=== PATIENT | female | born 1960 | race American Indian/Alaskan Native ===

== ENCOUNTER 2021-05-14 14:22 | Emergency (ER) | payer MEDICARE ==
[2021-05-14 14:38] VITALS: BP 154/90
[2021-05-14] MEDS ORDERED: ASPIRIN 81 MG TAB CHEW PO ONE (14:40)
--- NOTE | 2021-05-14 14:56 | Emergency Department Report ---
ED Chest Pain HPI - General Chief Complaint: Chest Pain Stated Complaint: CHEST PAIN Time Seen by Provider: 05/14/21 14:34 Source: patient Mode of arrival: Stretcher Limitations: No Limitations - History of Present Illness Initial Comments: Patient is 60 years old female with history of hypertension and diabetes. Patient presented to the ER complaining of sudden onset of substernal chest pain with no radiation. Patient denies any shortness of breath, fever or chills. No nausea or vomiting. MD Complaint: chest pain -: hour(s) (2), This afternoon Onset: during rest Pain Location: substernal Severity scale (0 -10): 5 Quality: tightness, pressure Consistency: constant - Related Data Allergies Allergy/AdvReac Type Severity Reaction Status Date / Time No Known Allergies Allergy Verified 05/14/21 14:30 Heart Score - HEART Score History: Moderately suspicious EKG: Non-specific Age: 45-65 Risk factors: > 3 risk factors or hx of atherosclerotic disease Troponin: < normal limit HEART Score: 5 - EKG Read Time Time EKG Completed: 14:31 EKG Read Time: 14:31 - Critical Actions Critical Actions: 4-6 pts:12-16.6% risk of adverse cardiac event. Should be admitted ED Review of Systems ROS: Stated complaint: CHEST PAIN Other details as noted in HPI Comment: All other systems reviewed and negative Constitutional: denies: chills, fever Respiratory: denies: cough, shortness of breath, SOB with exertion, SOB at rest Cardiovascular: chest pain. denies: palpitations, dyspnea on exertion Gastrointestinal: denies: abdominal pain, nausea, vomiting, diarrhea, constipation, hematemesis Musculoskeletal: denies: back pain Neurological: denies: headache, weakness, numbness, paresthesias ED Past Medical Hx - Past Medical History Previous Medical History?: Yes Hx Hypertension: Yes Hx Diabetes: Yes - Surgical History Past Surgical History?: No - Social History Smoking Status: Never Smoker Substance Use Type: None ED Physical Exam - General Limitations: No Limitations General appearance: alert, in no apparent distress - Head Head exam: Present: atraumatic, normocephalic, normal inspection - Eye Eye exam: Present: normal appearance - ENT ENT exam: Present: normal exam, normal orophraynx, mucous membranes moist - Neck Neck exam: Present: normal inspection, full ROM. Absent: tenderness, meningismus - Respiratory Respiratory exam: Present: normal lung sounds bilaterally - Cardiovascular Cardiovascular Exam: Present: regular rate, normal rhythm, normal heart sounds - GI/Abdominal GI/Abdominal exam: Present: soft, normal bowel sounds. Absent: distended, tenderness, guarding, rebound, rigid, organomegaly, mass, bruit, pulsatile mass, hernia - Extremities Exam Extremities exam: Present: normal inspection, full ROM, normal capillary refill. Absent: tenderness - Back Exam Back exam: Present: normal inspection, full ROM. Absent: CVA tenderness (R), CVA tenderness (L) - Neurological Exam Neurological exam: Present: alert, oriented X3, CN II-XII intact, normal gait, reflexes normal. Absent: motor sensory deficit - Psychiatric Psychiatric exam: Present: normal mood - Skin Skin exam: Present: warm, intact, normal color ED Course Vital Signs 05/14/21 14:30 Temperature 98.2 F Pulse Rate 74 Respiratory 16 Rate Blood Pressure 154/90 [Left] O2 Sat by Pulse 100 Oximetry - Reevaluation(s) Reevaluation #1: 05/14/21 17:45 I recommended the patient for admission however patient stated that she does not want to be admitted and she stated that her chest pain gone. Patient stated that she has a lot of things to do at home. I explained to her the possibility of having heart attack and even though if the first enzymes and EKG is negative. Patient understood this very well. Patient is alert, oriented x3 no acute distress. Patient is able to make sound decision. Patient decided to sign AGAINST MEDICAL ADVICE. I gave the patient an instruction about chest pain and to return to the ER immediately if she develop new symptoms or if her chest pain get worse. ED Medical Decision Making - Lab Data Result diagrams: 05/14/21 15:05 05/14/21 15:05 - EKG Data -: EKG Interpreted by Nv EKG shows normal: sinus rhythm Rate: normal - EKG Data Interpretation: no acute changes - Radiology Data Radiology results: report reviewed - Medical Decision Making Patient is 60 years old female with history of hypertension and diabetes. Patient presented to the ER complaining of sudden onset of substernal chest pain with no radiation. Patient denies any shortness of breath, fever or chills. No nausea or vomiting. EKG is unremarkable. Labs reviewed and negative first troponin. Chest x-ray is negative for acute finding. Patient stated that she still having chest pain. Patient given morphine. I discussed the patient with Dr. Back, he agreed to admit the patient to medical service for further management. Critical care attestation.: If time is entered above; I have spent that time in minutes in the direct care of this critically ill patient, excluding procedure time. ED Disposition Clinical Impression: Unstable angina Disposition: 01 HOME / SELF CARE / HOMELESS Is pt being admited?: No Condition: Stable Instructions: Angina, [id number] Referrals: PRIMARY CARE, [Primary Care Provider] - 3-5 Days
[2021-05-14 15:19] LABS: Basophils % (Auto) 0.1 % (0.0-1.8); Eosinophils % (Auto) 0.2 % (0.0-4.3); Hematocrit 34.4 % (30.3-42.9); Hemoglobin 11.2 gm/dl (10.1-14.3); Lymphocytes # (Auto) 2.1 K/mm3 (1.2-5.4); Lymphocytes % (Auto) 28.7 % (13.4-35.0); Mean Corpuscular HGB Conc 33 % (30-34); Mean Corpuscular Volume 80 fl (79-97); Monocytes # (Auto) 0.5 K/mm3 (0.0-0.8); Monocytes % (Auto) 7.3 % (0.0-7.3); Platelet Count 239 K/mm3 (140-440); Red Cell Distribution Width 15.2 % (13.2-15.2)
--- NOTE | 2021-05-14 15:25 | XRay Report ---
CHEST 1 VIEW 05/14/2021 2:41 PM INDICATION / CLINICAL INFORMATION: Chest Pain. COMPARISON: None available. FINDINGS: SUPPORT DEVICES: None. HEART / MEDIASTINUM: No significant abnormality. LUNGS / PLEURA: There are nonspecific bibasilar opacities, left greater than right. The upper lungs a re clear. No significant pleural effusion. No pneumothorax. ADDITIONAL FINDINGS: No significant additional findings. IMPRESSION: Nonspecific bibasilar opacities could represent atelectasis or pneumonia. Continued radiographic foll ow-up to resolution is recommended. Signer Name: Liang Avendano MD Signed: 05/14/2021 3:21 PM Workstation Name: [id number]
[2021-05-14 15:31] LABS: INR 0.92 (0.87-1.13)
[2021-05-14 15:32] LABS: Partial Thromboplastin Time 27.5 Sec. (24.2-36.6)
[2021-05-14 15:40] LABS: BUN/Creatinine Ratio 16; Blood Urea Nitrogen 13 mg/dL (7-17); Calcium 9.6 mg/dL (8.4-10.2); Hemolysis Index 3
[2021-05-14] MEDS ORDERED: MORPHINE 4 MG/1 ML INJ IV ONE (16:36)
[2021-05-14] MEDS ORDERED: ONDANSETRON 4 MG/2 ML INJ IV ONE (16:36)
--- NOTE | 2021-05-16 08:53 | Electrocardiograph Report ---
[facility] Test Date: 2021-05-14 Test Time: 14:31:31 Pat Name: ETHAN INMAN Department: Room: Gender: F Shucker: : 1960 Requested By: NELSON GALLEGOS Order Number: [id number] Reading MD: Sawyer Stewart Measurements Intervals Owen Rate: 86 P: 61 WI: 138 QRS: 60 QRSD: 87 T: 5 QT: 375 QTc: 449 Interpretive Statements Sinus rhythm Low voltage, precordial leads Borderline T abnormalities, diffuse leads No previous ECG available for comparison Electronically Signed On 05-16-2021 8:53:33 EST by Sawyer Stewart
== END 2021-05-14 18:15 | disposition home or self-care (01) ==
LOC: ED 14:22
DX: I20.0 Unstable angina (principal); I10 Essential (primary) hypertension; E11.8 Type 2 diabetes mellitus with unspecified complications
CPT/HCPCS: 36415; 71045; 80048; 83690; 83880; 84484; 85025; 85610; 85730; 93005; 96374; 96375; 99284; J2270; J2405